=== PATIENT | female | born 1940 | race Caucasian/White ===

== ENCOUNTER → 2019-05-29 | Outpatient (CLI) | payer OTHER, SELFPAY ==
[2019-05-31 13:07] LABS: HPV 16 Negative (Negative); HPV 18 Negative (Negative); HPV OTHER HR TYPES Negative (Negative)
== END | disposition home or self-care (01) ==
LOC: LAB SHORT 16:43 → LAB 16:43
PROVIDERS: Obstetrics & Gynecology Gynecology
DX: Z12.4 Encounter for screening for malignant neoplasm of cervix (principal)
CPT/HCPCS: 87624; G0123

== ENCOUNTER 2019-09-21 08:20 | Day surgery (SDC) | payer OTHER, SELFPAY ==
[~2019-09-21] VITALS: Ht 165.1 cm; Wt 72.7 kg
[2019-09-21] MEDS ORDERED: THERA-D2000 UNIT (08:57)
[2019-09-21] MEDS ORDERED: NEPHPLEX RX TA1 EACH (08:57)
[2019-09-21] MEDS ORDERED: SIMV40 (08:57)
[2019-09-21] MEDS ORDERED: BIOTIN5000 MCG (08:58)
== END 2019-09-21 10:35 | disposition home or self-care (01) ==
LOC: ORSCSDS 08:20
PROVIDERS: Surgery
PROC: 0DBH8ZX Excision of Cecum, Via Natural or Artificial Opening Endoscopic, Diagnostic (ICD-10-PCS; principal; 2019-09-21 09:45)
PROC: 0DBL8ZX Excision of Transverse Colon, Via Natural or Artificial Opening Endoscopic, Diagnostic (ICD-10-PCS; principal; 2019-09-21 09:45)
PROC: 0DBN8ZX Excision of Sigmoid Colon, Via Natural or Artificial Opening Endoscopic, Diagnostic (ICD-10-PCS; principal; 2019-09-21 09:45)
DX: Z12.11 Encounter for screening for malignant neoplasm of colon (principal); Z86.010 Personal history of colon polyps; D12.3 Benign neoplasm of transverse colon; D12.0 Benign neoplasm of cecum; D12.5 Benign neoplasm of sigmoid colon; I10 Essential (primary) hypertension; Z87.891 Personal history of nicotine dependence; Z79.899 Other long term (current) drug therapy
CPT/HCPCS: 88305; J2704; J7120

== ENCOUNTER 2020-08-07 16:49 | Observation (INO) | payer OTHER ==
[~2020-08-07] VITALS: Ht 167.6 cm; Wt 72.6 kg
[~2020-08-07 16:49] MED LIST: BIOTIN5000 MCG; NEPHPLEX RX TA1 EACH; SIMV40; THERA-D2000 UNIT
[2020-08-07 17:33] LABS: BASOPHILS ABSOLUTE AUTO 0.04 K/mm3 (0.00-0.23); BASOPHILS PERCENT AUTO 0 % (0-2); EOSINOPHILS ABSOLUTE AUTO 0.12 K/mm3 (0.00-0.68); EOSINOPHILS PERCENT AUTO 1 % (0-6); Hematocrit 39.3 % (33.0-51.0); Hemoglobin 12.6 g/dL (11.5-16.0); IMMATURE GRAN PERCENT AUTO 1 % (0-1); LYMPHOCYTES ABSOLUTE AUTO 2.73 K/mm3 (0.84-5.20); LYMPHOCYTES PERCENT AUTO 24 % (21-46); MONOCYTES ABSOLUTE AUTO 0.58 K/mm3 (0.16-1.47); MONOCYTES PERCENT AUTO 5 % (4-13); Mean Corpuscular HGB Conc 32.1 g/dL (31.5-36.5); Mean Corpuscular Volume 97 fL (80-100); Mean Platelet Volume 9.8 fL (9.1-12.4); NEUTROPHILS ABSOLUTE AUTO 8.01 K/mm3 (1.96-9.15); NEUTROPHILS PERCENT AUTO 69 % (41-73); Platelet Count 164 K/mm3 (150-400); RDW Coefficient Variation 12.1 % (11.7-14.2); RDW Standard Deviation 43.2 fL (35.1-46.3); Red Blood Cell Count 4.07 M/mm3 (3.80-5.20); White Blood Cell Count 11.58 K/mm3 (4.00-11.30)
[2020-08-07 18:08] LABS: Alanine Aminotransfer (ALT/SGP 21 U/L (12-78); Albumin, Blood 2.8 g/dL (3.4-5.0); Alk Phos 77 U/L (50-136); Anion Gap 6 mmol/L (6-16); Aspartate Aminotrans (AST/SGOT 26 U/L (12-37); Bilirubin, Total 0.2 mg/dL (0.1-1.0); Blood Urea Nitrogen 19 mg/dL (8-24); Bun/Creatinine Ratio 22.4 (12.0-20.0); CO2, Blood 26 mmol/L (21-32); Calcium, Blood 8.3 mg/dL (8.5-10.1); Chloride, Blood 110 mmol/L (98-108); Creatinine, Blood 0.85 mg/dL (0.40-1.00); Globulin, Blood 2.9 g/dL (2.2-4.0); Glomerular Filtration Rate >60 (60-); Glucose, Blood 167 mg/dL (70-99); Potassium, Blood 3.9 mmol/L (3.5-5.5); Sodium, Blood 142 mmol/L (136-145); Total Protein, Blood 5.7 g/dL (6.4-8.2)
[2020-08-07 18:12] LABS: Source, Urine Catheter
[2020-08-07 18:13] LABS: Ethanol (Alcohol), Blood, Med <3 mg/dL; Troponin I <0.015 ng/mL (0.000-0.040)
[2020-08-07 18:18] LABS: Appearance, Urine Clear (Clear); Bilirubin, Urine Neg (Neg); Blood, Urine 4+ (Neg); Color, Urine Yellow (P-Yellow); Glucose Qualitative, Urine 1+ (Neg); Ketones, Urine Neg (Neg); Leukocyte Esterase, Urine Neg (Neg); Nitrite, Urine Neg (Neg); Protein, Urine 2+ (Neg); Urobilinogen, Urine NORM (Normal)
[2020-08-07 18:31] LABS: U Amphetamine Screen Not Detected; U Barbituate Screen Not Detected; U Benzodiazapine Screen Not Detected; U Buprenorphine Screen Not Detected; U Cannabinoids Screen Not Detected; U Cocaine Screen Not Detected; U Methadone Screen Not Detected; U Methamphetamine Screen Not Detected; U Opiates Screen Not Detected; U Oxycodone Screen Not Detected; U Phencyclidine Screen Not Detected; U Propoxyphene Screen Not Detected
[2020-08-07 18:32] LABS: Bacteria Rare /hpf; Squamous Epithelial Cells Not Seen /hpf (Few); Transitional Epithelial Cells Rare /hpf (0-Rare); White Blood Cells, Urine 0-2 /hpf (0-5)
--- NOTE | 2020-08-07 19:27 | NUR ---
Spoke with Dr Mcgraw and discussed case. Pt has significant intracranial bleed with no treatment options. Neurologists at [facility] Consulted. Callled and spoke with Pt's son Ender. Informed Pt is here in the ED and requested for family to come. Family arrives and Dr Mcgraw discusses Pt's condition and prognosis. Offered emotional support and escorted family to Pt's room. Pt's son and daughter present and is requesting for further family to arrive before withdrawing care. Remained in room to offer support. Ended visit with ED Solar Sales Manager Stacey remaining behind for continued support. Palliative Care will remain available.
--- NOTE | 2020-08-07 21:19 | NUR ---
Patient's family is bedside and grieving appropriately. Patient's daughter, Janet, asks me to say a prayer. I gather the entire family into ER-6 and provide a last rites type of prayer. I conduct a life review and provide grief support. Janet informs me that patient's electronics computer mechanic should arrive any minute and that they would be taking patient to the Medical Floor. She then thanks me for praying and for coming in.
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
== END 2020-08-08 05:25 ==
LOC: ER 16:49 → ICUE 16:50 → ERHOLD 19:07 → MEDS 21:35
PROVIDERS: Emergency Medicine; ADMIT Hospitalist
DX: S06.5X0A Traumatic subdural hemorrhage without loss of consciousness, initial encounter (principal); S06.6X0A Traumatic subarachnoid hemorrhage without loss of consciousness, initial encounter; S06.2X0A Diffuse traumatic brain injury without loss of consciousness, initial encounter; S22.41XA Multiple fractures of ribs, right side, initial encounter for closed fracture; R40.20 Unspecified coma; E78.5 Hyperlipidemia, unspecified; R40.2432 Glasgow coma scale score 3-8, at arrival to emergency department; Z79.899 Other long term (current) drug therapy; Z66 Do not resuscitate; V43.53XA Car driver injured in collision with pick-up truck in traffic accident, initial encounter
CPT/HCPCS: 31500; 31720; 51702; 70450; 71045; 72125; 73100; 74177; 80053; 81001; 83690; 84484; 85025; 93005; 93010; 94002; 96365-59; 96366-59; 96375-59; 99291-25; 99292; G0378; G0390; G0480; J2270; J2405; J2704; J7050; Q9967